=== PATIENT | male | born 1955 | race Caucasian/White ===

== ENCOUNTER 2023-10-27 11:16 | Outpatient (CLI) | payer MEDICARE, BC, SELFPAY | END 2023-10-27 11:17 | disposition home or self-care (01) | PROVIDERS: PCP Family Medicine; Visit Provider Family Medicine | DX: I10 Essential (primary) hypertension (principal); Z12.5 Encounter for screening for malignant neoplasm of prostate | CPT/HCPCS: 80048; 80061; 84460; G0103 ==

== ENCOUNTER 2023-11-11 10:56 | Outpatient (CLI) | payer MEDICARE, BC, SELFPAY | END 2023-11-11 10:57 | disposition home or self-care (01) | LOC: FBOREF 10:57 | PROVIDERS: PCP Family Medicine; Visit Provider Family Medicine | DX: R53.83 Other fatigue (principal); Z13.29 Encounter for screening for other suspected endocrine disorder | CPT/HCPCS: 84443 ==

== ENCOUNTER 2024-10-31 12:15 | Outpatient (CLI) | payer MEDICARE, BC, SELFPAY ==
[2024-10-31 15:38] LABS: Cholesterol* 226 mg/dL (90-199); HDL Cholesterol* 48 mg/dL (>=40); LDL Cholesterol Calculated 145 mg/dL (<100); Triglycerides* 165 mg/dL (40-149)
[2024-10-31 16:03] LABS: PSA Screen* 0.97 ng/mL (0.10-4.00)
== END 2024-10-31 12:16 | disposition home or self-care (01) ==
PROVIDERS: PCP Family Medicine; Visit Provider Family Medicine
DX: E03.9 Hypothyroidism, unspecified (principal); I10 Essential (primary) hypertension; Z12.5 Encounter for screening for malignant neoplasm of prostate
CPT/HCPCS: 80061; 84443; G0103

== ENCOUNTER 2025-01-03 19:49 | Outpatient (CLI) | payer MEDICARE, BC, SELFPAY ==
--- OUTSIDE RECORDS SUMMARY | 2025-01-04 00:58 | XMS_ITS | Clinical Summary ---
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 For routine questions regarding patient records, call [phone] during business hours, M-F 8:00 AM - 5:00 PM Central Time. Record requests for emergency care only can be directed to [phone] at any time.[facility] Allergies No known active allergies Medications CALCIUM CARB/VIT D3/MINERALS (CALCIUM-VITAMI N D ORAL) Take 1 tablet by mouth daily. 07/03/2016 Active B complex-vitamin (SUPER B-50) capsule Take 1 capsule by mouth. 01/25/2018 Active zinc chelated 50 mg tablet tablet Take 50 mg by mouth. 01/25/2018 Active vitamin E 400 unit capsule Take 400 Units by mouth. 01/25/2018 Active sour tavares extract 1,000 mg capsule Take 1 capsule by mouth. 01/25/2018 Active D3-E-Se-soy rqdev-gkpzwh-br copy messenger 1,200-15-35 twmp-sdgy-exj capsule Take 1 capsule by mouth. 01/25/2018 Active miscellaneous medical supply (Blood Pressure Cuff) [facility] [place]pertension . Needs BP monitor at home 1 each 03/14/2022 Active tamsulosin (FLOMAX) 0.4 mg 24 hr capsule TAKE 2 CAPSULES(0.8 MG) BY MOUTH DAILY 180 capsule 3 10/22/2022 Active irbesartan (AVAPRO) 150 mg tablet Take 1 tablet (150 mg total) by mouth daily. 90 tablet 3 05/05/2023 Active apixaban (ELIQUIS) 5 mg tablet Take 1 tablet by mouth 2 (two) times a day. 11/14/2023 Active metoprolol succinate (Toprol XL) 25 mg 24 hr tablet Take 1 tablet (25 mg total) by mouth daily. Do not crush or chew. 90 tablet 3 12/30/2023 Active omega-3 fatty acids-fish oil 360-1,200 mg capsule Take 1 capsule by mouth. Active magnesium oxide (Mag-Ox) 400 mg (241.3 mg magnesium) tablet Take 800 mg by mouth daily before morning meal. Active sertraline (Zoloft) 100 mg tablet Take 1.5 tablets (150 mg total) by mouth daily. 135 tablet 3 06/08/2024 Active SAW PALMETTO ORAL Take by mouth 2 (two) times a day. Active UNABLE TO FIND Take 1 capsule by mouth daily. Cayenne with Garlic Active levothyroxine 125 mcg tabletIndicatio ns:Hypothyroidi sm Take 1 tablet (125 mcg total) by mouth daily. 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 Hearing On The Contralateral Side 08/07/2017 Hypertension Essential Primary 06/19/2016 Overview (12/02/2016): Hypertension (HTN) Essential Benign Resolved Problems Problem Noted Date Diagnosed Date Resolved Date Alcohol Use Unspecified With Withdrawal Delirium 06/01/2024 06/08/2024 Rhabdomyolysis 05/31/2024 10/10/2024 Weakness General 05/31/2024 10/10/2024 Encounters Date Type Department Care Team Description 10/21/2024 9:52 AM CDT - 10/21/2024 11:59 PM CDT Emergency [facility] [address] [place] [phone] History Of Falling (Primary Dx) Discharge Disposition: Home or Self Care 10/21/2024 Clinical Communication Department of [facility], [facility], in [address] [phone] None Reported, Pcp Lip Laceration 10/11/2024 Results Follow-Up Department of Family Medicine, [facility], in [address] [phone] Desiree Briseno APRN, C.N.P. CBC with Differential, Blood, Comprehensive Metabolic Panel, Ferritin, Additional followed-up results: 9 10/10/2024 9:06 AM CDT - 10/10/2024 11:59 PM CDT Hospital Encounter Department of Laboratory Medicine in [address] [phone] Desiree Briseno APRN, C.N.P. History Of Falling; Weakness General Discharge Disposition: Home or Self Care 10/10/2024 9:06 AM CDT - 10/10/2024 11:59 PM CDT Hospital Encounter Department of Laboratory Medicine in [address] [phone] Desiree Briseno APRN, C.N.P. History Of Falling; Weakness General Discharge Disposition: Home or Self Care 10/10/2024 9:00 AM CDT Office Visit Department of Family Medicine, [facility], in [address] [phone] Desiree Briseno APRN, C.N.P. Weakness General (Primary Dx); Alcohol Moderate Or Severe Use Disorder (Dependence) Uncomplicated (HCC); Atrial Fibrillation Unspecified (HCC); History Of Falling; Change In Bowel Habit; Anxiety; Hypertension Essential Primary 10/10/2024 Results Follow-Up Department of Family Medicine, [facility], in [place], [place] [address] [place] [phone] Desiree Briseno APRN, C.N.P. ECG 12 Lead from Last 3 Months Immunizations Immunization Administration Dates Next Due Influenza high dose QV(65 years or older) (PF) 0 07/22/2021,05/01/2020 Influenza, Unspecified 05/13/2017 PPSV23 07/22/2021 Tdap 05/01/2020,04/08/2010 influenza vaccine quad (FLUZ ONE/FLUARIX) (6 months and older)(PF) 05/24/2018 Family History Medical History Relation Name Comments Hyperlipidemia Brother Heart failure Father Stroke Mother 1 Stroke Mother 2 Relation Name Status Comments Brother Alive Father Mother 1 Mother 2 Alive Social History Tobacco Use Types Packs/Day Years Used Date Smoking Tobacco: Former Cigarettes Passive Smoke Exposure: Never Smokeless Tobacco: Never Tobacco Cessation:Counseling Given: Not Answered Alcohol Use Standard Drinks/Week Comments Not Currently 14 (1 standard drink = 0.6 oz pu re alcohol) [facility] [employer] Answer Date Recorded In the past 12 months has e ME911, gas, oil, or water [employer] threatened to shut off services in your home? No 01/11/2024 Humiliation, Afraid, Rape, and Kick questionnair e Answer Date Recorded Within the last year, have y ou been afraid of your partner or ex-partner? No 03/21/2022 Within the last year, have y ou been humiliated or emotionally abused in other ways by your partner or ex-partner? No Within the last year, have y ou been kicked, hit, slapped, or otherwise physically hurt by your partner or ex-partner? No 03/21/2022 Within the last year, have y ou been raped or forced to have any kind of sexual activity by your partner or ex-partner? No 03/21/2022 Hunger Vital Sign Answer Date Recorded Within the past 12 months, y ou worried that your food would run out before you got the money to buy more. Never true 01/11/20 24 Within the past 12 months, t he food you bought just didn't last and you didn't have money to get more. Never true 01/11/2024 PRAPARE - Transportation Answer Date Re corded In the past 12 months, has l ack of transportation kept you from medical appointments or from getting medications? No 07/2023 In the past 12 months, has l ack of transportation kept you from meetings, work, or from getting things needed for daily living? No 01/11/2024 Housing Stability Answer Date Recorded What is your living situation today? [facility] place to live 01/11/2024 Education Answer Date Recorded What is the highest level of school you have completed or the highest degree you have received? 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 Gender Identity Male 12/31/2022 12:20 PM CDT Sexual Orientation Straight 06/17/2021 10 :27 AM MUD ANALYSIS OPERATOR Last Filed Vital Signs Vital Sign Reading Time Taken Comments Blood Pressure 138/84 10/10/2024 8:37 AM CDT Pulse 69 10/10/2024 8:37 AM CDT Temperature 36.4 C (97.5 F) 10/10/2024 8:26 AM CDT Respiratory Rate 13 02/03/2024 10:3 5 AM CDT Oxygen Saturation 95% 02/03/2024 11: 45 AM CDT Inhaled Oxygen Concentration - - Weight 94.3 kg (207 lb 14.3 oz) 10/10/2024 8:26 AM CDT Height 179 cm (5' 10.47) 10/10/2024 8:26 AM CDT Body Mass Index 29.43 10/10/2024 8:26 AM CDT Plan of Treatment Health Maintenance Due Date Last Done Comments CT Colonography 1955 Hepatitis C Screening 1955 Zoster Vaccines (1 of 2) 2004 Pneumococcal vaccine (50+ years) (2 of 2 - PCV) 07/22/2022 07/22/2021 COVID-19 Vaccine ( - season) 2024 Influenza Vaccine (#1) 2024 , 05/01/2020, 05/24/2018, Additional history exists Office Visit for Blood Pressure Check / Re-check 10/10/2025 10/10/2024 Thyroid Stimulating Hormone (TSH) test for thyroid function 10/10/2025 10/10/2024, 11/14/2023 Cologuard 11/04/2025 11/04/2022 Colonoscopy 01/29/2026 01/29/2023 Colorectal Cancer Surveillance 01/29/2026 Fasting Glucose for Diabetes Screening 10/22/2027 10/21/2024, 10/10/2024, 05/31/2024, Additional history exists DTaP,Tdap,and Td Vaccines (3 - Td or Tdap) 05/01/2030 05/01/2020, 04/08/2010 Abdominal Aortic Aneurysm (AAA) Screen Completed 07/01/2021 Colonoscopy After Positive Cologuard Discontinued 01/29/2023 Depression Screening (Annual PHQ-2) Completed 10/10/2024, 10/08/2024 Fall Risk Screen (Annual) Completed 10/10/2024 IPV Vaccines Aged Out No longer eligi ble based on patient's age to complete this topic Medical Devices Implanted Type 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 Body Location - Other. Not Applicable. Device Status Text - [id number]. Procedures Procedure Name Priority Date/Time Associated Diagnosis Comments CT CERVICAL SPINE WITHOUT IV CONTRAST RAD - Semiurgent (Fast; most ED patients; some inpatients) 10/21/2024 11:[address] HEAD WITHOUT IV CONTRAST RAD - Semiurgent (Fast; most ED patients; some inpatients) 10/21/2024 11:11 AM CDT DX CHEST AP OR PA AND LATERAL 2 VIEWS RAD - Semiurgent (Fast; most ED patients; some inpatients) 10/21/2024 11:08 AM CDT THYROPEROXIDASE (TPO) ABS, S Routine 10/10/2024 9:25 AM CDT HC T4 FREE Routine 10/10/2024 9:25 AM CDT NT-PRO B-TYPE NATRIURETIC PEPTIDE (BNP), S Routine 10/10/2024 9:25 AM CDT History Of Falling Weakness General COPPER, S Routine 10/10/2024 9:25 AM CDT History Of Falling Weakness General ZINC, S Routine 10/10/2024 9:25 AM CDT History Of Falling Weakness General MAGNESIUM, S Routine 10/10/2024 9:25 AM CDT History Of Falling Weakness General FOLATE, S Routine 10/10/2024 9:25 AM CDT History Of Falling Weakness General VITAMIN B12 ASSAY, S Routine 10/10/2024 9:25 AM CDT History Of Falling Weakness General VITAMIN D, IMMUNOASSAY, TOTAL, S Routine 10/10/2024 9:25 AM CDT History Of Falling Weakness General THYROID FUNCTION CASCADE, S Routine 10/10/2024 9:25 AM CDT History Of Falling Weakness General IRON AND TOT IRON-BINDING CAPACITY, S/P Routine 10/10/2024 9:25 AM CDT History Of Falling Weakness General FERRITIN, S Routine 10/10/2024 9:25 AM CDT History Of Falling Weakness General COMPREHENSIVE METABOLIC PANEL, S/P Routine 10/10/2024 9:25 AM CDT History Of Falling Weakness General CBC WITH DIFFERENTIAL, B Routine 10/10/2024 9:25 AM CDT History Of Falling Weakness General ECG Routine 10/10/2024 9:03 AM CDT History Of Falling Weakness General COLOGUARD Routine 11/04/2022 1:05 PM CDT Screening Cancer Colon US AORTA AAA SCREENING RAD - Routine (most inpatients and all outpatients) 07/01/2021 12:45 PM MUD ANALYSIS OPERATOR Screening Abdominal Aortic Aneurysm from Last 3 Months or Most Recently Relevant to Health Maintenance Results * CT Cervical Spine without IV Contrast (10/21/2024 11:13 AM CDT) Anatomical Region Laterality Modality Cervical Spine, Neuroradiolo gy RST LOS, Neuroradiology ARZ LOS, Neuroradiology FLA LOS N/A Computed Tomography 10/21/2024 11:1 2 AM CDT Impressions 10/21/2024 11:25 AM CDT 1. No acute findings in the cervical spine. Narrative 10/21/2024 11:25 AM CDT EXAM: CT CERVICAL SPINE WITHOUT IV CONTRAST COMPARISON: 05/31/2024 FINDINGS: Preserved alignment at the craniocervical junction. There is stepwise grade 1 anterolisthesis of C4-C6 on a degenerative basis. There is no evidence of traumatic malalignment. No evidence of a jumped or perched facet. There is multilevel moderate to severe cervical spondylosis manifested by degenerative disc disease, uncovertebral arthropathy, and facet arthropathy. Moderate to severe foraminal narrowing right C4-5, left C5-6, left C6-7 and C7-T1. No high-grade spinal canal stenosis. Carotid bulb calcified atheromatous plaque. Procedure Note Elisabeth Wood M.D. - 10/21/2024 EXAM: CT CERVICAL SPINE WITHOUT IV CONTRAST COMPARISON: 05/31/2024 FINDINGS: Preserved alignment at the craniocervical junction. There is stepwisegrade 1 anterolisthesis of C4-C6 on a degenerative basis. There is noevidence of traumatic malalignment. No evidence of a jumped or perchedfacet. There is multilevel moderate to severe cervical spondylosis manifested bydegenerative disc disease, uncovertebral arthropathy, and facetarthropathy. Moderate to severe foraminal narrowing right C4-5, left C5-6,left C6-7 and C7-T1. No high-grade spinal canal stenosis. Carotid bulb calcified atheromatous plaque. IMPRESSION: 1. No acute findings in the cervical spine. us Loreto Salazar M.D. [facility] PROCEDURES Final Result * CT Head without IV Contrast (10/21/2024 11:11 AM CDT) Anatomical Region Laterality Modality Head, Neuroradiology RST LOS , Neuroradiology ARZ LOS, Neuroradiology FLA LOS N/A Computed Tomography 10/21/2024 11:0 8 AM CDT Impressions 10/21/2024 11:15 AM CDT 1. No acute intracranial abnormality. Stable exam findings. Narrative 10/21/2024 11:15 AM CDT EXAM: CT HEAD WITHOUT IV CONTRAST COMPARISON: CT of the head 05/31/2024. FINDINGS: Cortical and cerebellar volume loss redemonstrated with stable ventricular size and configuration. Patent basilar cisterns. Subcortical and periventricular white matter low attenuation unchanged. No intra-axial hemorrhage. No mass effect or midline shift. No abnormal extra-axial fluid collection. Calvarial structures are intact. Lobular paranasal mucosal thickening across the maxillary sinuses, left greater than right. Mastoid air cells remain clear. Procedure Note Glen Molina M.D. - 10/21/2024 EXAM: CT HEAD WITHOUT IV CONTRAST COMPARISON: CT of the head 05/31/2024. FINDINGS: Cortical and cerebellar volume loss redemonstrated with stableventricular size and configuration. Patent basilar cisterns. Subcorticaland periventricular white matter low attenuation unchanged. No intra-axialhemorrhage. No mass effect or midline shift. No abnormal extra-axial fluid collection. Calvarial structures are intact. Lobular paranasal mucosal thickeningacross the maxillary sinuses, left greater than right. Mastoid air cellsremain clear. IMPRESSION: 1. No acute intracranial abnormality. Stable exam findings. us Loreto Salazar M.D. [facility] CT PROCEDURES Final Result * DX Chest AP or PA and Lateral 2 Views (10/21/2024 11:08 AM CDT) Anatomical Region Laterality Modality Chest, Thoracic RST LOS, Tho racic ARZ LOS, Thoracic FLA LOS N/A Digital Radiography Impressions 10/21/2024 11:13 AM CDT Images are interpreted with comparison several prior studies, most recently radiographs 05/30/2024. Cardiac size and mediastinal contours are stable, to include a tortuous thoracic aorta. Streaky linear areas of opacity at each lung base favored to reflect subsegmental atelectasis. No consolidation. No pneumothorax or pleural effusion. Degenerative changes throughout the thoracic spine with mild vertebral body height loss, unchanged from prior studies. Narrative 10/21/2024 11:13 AM CDT EXAM: DX CHEST AP OR PA AND LATERAL 2 VIEWS Procedure Note Glen Molina M.D. - 10/21/2024 EXAM: DX CHEST AP OR PA AND LATERAL 2 VIEWS IMPRESSION: Images are interpreted with comparison several prior studies, mostrecently radiographs 05/30/2024. Cardiac size and mediastinal contours arestable, to include a tortuous thoracic aorta. Streaky linear areas ofopacity at each lung base favored to reflect subsegmental atelectasis. No consolidation. Nopneumothorax or pleural effusion. Degenerative changes throughout thethoracic spine with mild vertebral body height loss, unchanged from priorstudies. Loreto Salazar M.D. IMG DIAGNOSTIC IMAGING PROCEDU RES Final Result * (ABNORMAL) T4 (Thyroxine), Free, Serum (10/10/2024 9:25 AM CDT) T4 (Thyroxine), Free, S 0.7(L) 0.9 - 1.7 ng/dL 10/11/2024 4:13 AM CDT [facility] Blood 10/10/2024 9:25 AM CDT 10/10/2024 9:27 AM CDT Desiree Briseno APRN, C.N.P. LAB BLOOD ADD-ON Fi nal Result [facility] [address] [place] [address], [facility] [address] [place] [address] * Vitamin D, Immunoassay, Total, Serum (10/10/2024 9:25 AM CDT) Pathologist [facility] Vitamin D, Immunoassay, Total, S 45 20 - 80 ng/mL 10/10/2024 2:48 PM CDT [facility] Comment: Optimum levels within the healthy population are 20-50, patients with bone disease may benefit from high levels within this range Blood (Blood, Venous) 10/10/2024 9:25 AM CDT 10/10/2024 2:01 PM CDT Desiree Briseno APRN, C.N.P. LAB BLOOD ADD-ON Fi nal Result Performing Organization Address City/[facility]/ZIP Co de Phone Number [facility] [address] [place] [id number], [facility] [place] [address] * (ABNORMAL) Thyroid Function [place] (10/10/2024 9:25 AM CDT) [facility] TSH, Sensitive 4.9(H) 0.3 - 4.2 mIU/L 10/10/2024 11:08 PM CDT [facility] Blood (Blood, Venous) 10/10/2024 9:25 AM CDT 10/10/2024 9:27 AM CDT us Desiree Briseno APRN, C.N.P. LAB BLOOD ADD-ON Fi nal Result [facility] [address] [place] [address], [place] [facility] [address] [place] [address] * NT-Pro B-Type Natriuretic Peptide (BNP) (10/10/2024 9:25 AM CDT) NT-Pro BNP 213 <=540 pg/mL 10/10/2024 10:26 PM CDT [facility] Comment: NT-proBNP values less than 300 pg/mL have a 99% negative predictive value for excluding acute congestive heart failure. A cutoff of 1200 pg/mL for patients with an eGFR<60 yields a diagnostic sensitivity and specificity of 89% and 72% for acute congestive heart failure. A diagnostic NT-proBNP cutoff of 900 pg/mL has been suggested in adults 50-75 years of age in the absence of renal failure. Blood (Blood, Venous) 10/10/2024 9:25 AM CDT 10/10/2024 9:27 AM CDT Desiree Briseno APRN, C.N.P. LAB BLOOD ADD-ON Fi nal Result [facility] [address] [place] [address], [facility] [address] [place] [address] * Thyroperoxidase (TPO) Antibodies (10/10/2024 9:25 AM CDT) Thyroperoxidase Ab, S 11.7 <34.0 IU/mL 10/11/2024 2:51 AM CDT [facility] Blood 10/10/2024 9:25 AM CDT 10/10/2024 9:27 AM CDT Desiree Briseno APRN, C.N.P. LAB BLOOD ADD-ON Fi nal Result [facility] [place] [address], [facility] in [place] [address] [place] [id number] * Iron and Total Iron-Binding Capacity (10/10/2024 9:25 AM CDT) Iron 85 50 - 150 mcg/dL 10/10/2024 3:27 PM CDT [facility] Total Iron Binding Capacity 266 250 - 400 mcg/dL 10/10/2024 3:27 PM CDT [facility] Percent Saturation 32 14 - 50 % 10/10/2024 3:27 PM CDT [facility] Blood (Blood, Venous) 10/10/2024 9:25 AM CDT 10/10/2024 2:50 PM CDT Desiree Briseno APRN C.N.P. LAB BLOOD ADD-ON Fi nal Result Performing Organization Address [facility] de Phone Number [facility] [address] [place] [address], [place] [facility] [address] [place] [address] * Copper (10/10/2024 9:25 AM CDT) Copper, S 115 73 - 129 mcg/dL 10/11/2024 1:[address] [facility] Comment: ----ADDITIONAL INFORMATION---- This test was developed and its performance characteristics determined by [facility] in a manner consistent with CLIA requirements. This test has not been cleared or approved by the U.S. Food and Drug Administration. Blood (Blood, Venous) 10/10/2024 9:25 AM CDT 10/11/2024 7:23 AM CDT Desiree Briseno APRN C.N.P. LAB BLOOD NON ADD-O N Final Result Performing Organization Address [facility] Co de Phone Number [facility] [address] [place] [address] [facility] [address] [place] [address] * Zinc (10/10/2024 9:25 AM CDT) Zinc, S 81 60 - 106 mcg/dL 10/11/2024 1:[address] [facility] Comment: ----ADDITIONAL INFORMATION---- This test was developed and its performance characteristics determined by [facility] in a manner consistent with CLIA requirements. This test has not been cleared or approved by the U.S. Food and Drug Administration. Blood (Blood, Venous) 10/10/2024 9:25 AM CDT 10/11/2024 7:23 AM CDT us Ruddy Chacko APRNNKrystynaPKrystyna LAB BLOOD NON ADD-O N Final Result [facility] [address] [place] [address] [facility] [address] [place] [address] * (ABNORMAL) CBC with Differential, Blood (10/10/2024 9:25 AM CDT) Hemoglobin 13.8 13.2 - 16.6 g/dL 10/10/2024 9:32 AM CDT [facility] Hematocrit 40.0 38.3 - 48.6 % 10/10/2024 9:32 AM CDT [facility] Erythrocytes 4.47 4.35 - 5.65 x10(12)/L 10/10/2024 9:32 AM CDT [facility] MCV 89.5 78.2 - 97.9 fL 10/10/2024 9:32 AM CDT [facility] RBC Distrib Width 13.6 11.8 - 14.5 % 10/10/2024 9:32 AM CDT [facility] Platelet Count 224 135 - 317 x10(9)/L 10/10/2024 9:32 AM CDT [facility] Leukocytes 4.2 3.4 - 9.6 x10(9)/L 10/10/2024 9:32 AM CDT [facility] Neutrophils 2.69 1.56 - 6.45 x10(9)/L 10/10/2024 9:32 AM CDT [facility] Lymphocytes 0.69(L) 0.95 - 3.07 x10(9)/L 10/10/2024 9:32 AM CDT [facility] Monocytes 0.56 0.26 - 0.81 x10(9)/L 10/10/2024 9:32 AM CDT [facility] Eosinophils 0.20 0.03 - 0.48 x10(9)/L 10/10/2024 9:32 AM CDT [facility] Basophils 0.06 0.01 - 0.08 x10(9)/L 10/10/2024 9:32 AM CDT [facility] Blood (Blood, Venous) 10/10/2024 9:25 AM CDT 10/10/2024 9:27 AM CDT Desiree Briseno APRN, C.N.P. LAB BLOOD ADD-ON Fi nal Result Performing Organization Address [facility] Co de Phone Number [facility] [address] [place] [address], [facility] in [place] [address] [place] [phone] * Magnesium (10/10/2024 9:25 AM CDT) Magnesium, P 1.9 1.7 - 2.3 mg/dL 10/10/2024 10:02 AM CDT [facility] Blood (Blood, Venous) 10/10/2024 9:25 AM CDT 10/10/2024 9:27 AM CDT Desiree Briseno APRN, C.N.P. LAB BLOOD ADD-ON Fi nal Result Performing Organization Address [facility] Co de Phone Number [facility] [address], [place] [address], [facility] in [place] [address] [place] [address] * Folate (10/10/2024 9:25 AM CDT) Folate, S 9.4 >=4.0 mcg/L 10/10/2024 3:32 PM CDT [facility] Comment: Biotin has been identified by the hot head machine operator as a potential interfering substance. Higher concentrations of biotin may be found in multivitamins, hair/nail supplements, and workout supplements. If the result does not match clinical observations, repeat testing after patient refrains from the use of supplements for at least 12 hours. Blood (Blood, Venous) 10/10/2024 9:25 AM CDT 10/10/2024 2:50 PM CDT Desiree Briseno APRN, C.N.P. LAB BLOOD ADD-ON Fi nal Result Performing Organization Address [facility] Co de Phone Number [facility] [address] [place] [address], [facility] [address] [place] [address] * Ferritin (10/10/2024 9:25 AM CDT) Ferritin, S 210 31 - 409 mcg/L 10/10/2024 11:07 PM CDT AUST Comment: Biotin has been identified by the hot head machine operator as a potential interfering substance. Higher concentrations of biotin may be found in multivitamins, hair/nail supplements, and workout supplements. If the result does not match clinical observations, repeat testing after patient refrains from the use of supplements for at least 12 hours. Blood (Blood, Venous) 10/10/2024 9:25 AM CDT 10/10/2024 9:27 AM CDT Desiree Briseno APRN, C.N.P. LAB BLOOD ADD-ON Fi nal Result Performing Organization Address [facility] Co de Phone Number [facility] [address] [place] [address], [place] AUST [facility] [address] [place] [address] * Vitamin B12 Assay (10/10/2024 9:25 AM CDT) Vitamin B12 Assay, S 694 232 - 1245 ng/L 10/10/2024 3:32 PM CDT AUST Comment: Biotin has been identified by the hot head machine operator as a potential interfering substance. Higher concentrations of biotin may be found in multivitamins, hair/nail supplements, and workout supplements. If the result does not match clinical observations, repeat testing after patient refrains from the use of supplements for at least 12 hours. Blood (Blood, Venous) 10/10/2024 9:25 AM CDT 10/10/2024 2:50 PM CDT us Ruddy Chacko APRNNZaid LAB BLOOD ADD-ON Fi nal Result [facility] [address] [place] [address], [facility] AUST [facility] [address] [place] [address] * (ABNORMAL) Comprehensive Metabolic Panel (10/10/2024 9:25 AM CDT) Potassium, P 4.4 3.6 - 5.2 mmol/L 10/10/2024 10:02 AM CDT OWAT Sodium, P 136 135 - 145 mmol/L 10/10/2024 10:02 AM CDT OWAT Chloride, P 98 98 - 107 mmol/L 10/10/2024 10:02 AM CDT OWAT Bicarbonate, P 28 22 - 29 mmol/L 10/10/2024 10:02 AM CDT OWAT Anion Gap, P 10 7 - 15 10/10/2024 10:02 AM CDT OWAT BUN (Blood Urea Nitrogen), P 10 8 - 24 mg/dL 10/10/2024 10:02 AM CDT OWAT Creatinine 0.82 0.74 - 1.35 mg/dL 10/10/2024 10:02 AM CDT OWAT Estimated GFR (eGFR) >90 >=60 mL/min/BS A 10/10/2024 10:02 AM CDT OWAT Comment: Estimated GFR calculated using the 2020 CKD_EPI creatinine equation. Calcium, Total, P 9.9 8.8 - 10.2 mg/dL 10/10/2024 10:02 AM CDT OWAT Glucose, P 108 70 - 140 mg/dL 10/10/2024 10:02 AM CDT OWAT Protein, Total, P 8.1(H) 6.3 - 7.9 g/dL 10/10/2024 10:02 AM CDT OWAT Albumin, P 4.7 3.5 - 5.0 g/dL 10/10/2024 10:02 AM CDT OWAT Aspartate Aminotransferase (AST), P 21 8 - 48 U/L 10/10/2024 10:02 AM CDT OWAT Alkaline Phosphatase, P 65 40 - 129 U/L 10/10/2024 10:02 AM CDT OWAT Alanine Aminotransferase (ALT), P 16 7 - 55 U/L 10/10/2024 10:02 AM CDT OWAT Bilirubin, Total, P 0.4 0.0 - 1.2 mg/dL 10/10/2024 10:02 AM CDT OWAT Blood (Blood, Venous) 10/10/2024 9:25 AM CDT 10/10/2024 9:27 AM CDT us Desiree Briseno APRN, C.N.P. LAB BLOOD ADD-ON Fi nal Result Performing Organization Address [facility] Co de Phone Number [facility] [address] [place] [address], [place] OWAT [facility] [place] [address] [place] [address] * ECG 12 Lead (10/10/2024 9:03 AM CDT) Ventricular Rate ECG/Min 59 BPM MUSE ID Interval 188 ms MUSE QRSD Interval 94 ms MUSE QT Interval 430 ms MUSE QTC Interval 425 ms MUSE P [place] 61 degrees MUSE R [place] 35 degrees MUSE T Wave [place] 69 degrees MUSE 10/10/2024 9:03 AM CDT 10/10/2024 9:29 AM CDT Impressions MUSE - 10/10/2024 9:29 AM CDT Sinus bradycardia Nonspecific ST abnormality When compared with ECG of 07-Mar-2024 08:50, No significant change was found Reviewed by YUNIER Sim Narrative Procedure Note Dion Wallis Jr., M.D. - 10/10/2024 IMPRESSION: Sinus bradycardia Nonspecific ST abnormality When compared with ECG of 07-Mar-2024 08:50, No significant change was found Reviewed by YUNIER Sim us Desiree Briseno APRN, C.N.P. ECG ORDERABLES Fin al Result Performing Organization Address [facility] Co de Phone Number MUSE NA * (ABNORMAL) Cologuard-Sent Out Lab (11/04/2022 1:05 PM CDT) Result Positive( A) Negative 11/21/2022 12:23 AM CDT EXLI Comment: POSITIVE TEST RESULT. A positive Cologuard result should be followed with a colonoscopy or visual examination of the colon. The normal value (reference range) for this assay is negative. TEST DESCRIPTION: Composite algorithmic analysis of stool DNA-biomarkers with hemoglobin immunoassay. Quantitative values of individual biomarkers are not reportable and are not associated with individual biomarker result reference ranges. Cologuard is intended for colorectal cancer screening of adults of either sex, 45 years or older, who are at average-risk for colorectal cancer (CRC). Cologuard has been approved for use by the [place]. FDA. The performance of Cologuard was established in a cross sectional study of average-risk adults aged 50-84. Cologuard performance in patients ages 45 to 49 years was estimated by sub-group analysis of near-age groups. Colonoscopies performed for a positive result may find as the most clinically significant lesion: colorectal cancer [4.0%], advanced adenoma (including sessile serrated polyps greater than or equal to 1cm diameter) [20%] or non- advanced adenoma [31%]; or no colorectal neoplasia [45%]. These estimates are derived from a prospective cross-sectional screening study of 10,000 individuals at average risk for colorectal cancer who were screened with both Cologuard and colonoscopy. (Syeda Norwood et al, N Engl J Med 2014;370(14):4496-3705.) Cologuard may produce a false negative or false positive result (no colorectal cancer or precancerous polyp present at colonoscopy follow up). A negative Cologuard test result does not guarantee the absence of CRC or advanced adenoma (pre-cancer). The current Cologuard screening interval is every 3 years. ([place] [employer] and [place]. Multi-Society Task Force). Cologuard performance data in a 10,000 patient pivotal study using colonoscopy as the reference method can be accessed at the following location: www.[employer]/results. Additional description of the Cologuard test process, warnings and precautions can be found at www.cologuard.com. Stool (Stool) 11/04/2022 1:0 5 PM CDT 11/05/2022 1:18 PM CDT us Amber Pang APRN., M.S. LAB BODY FLUIDS AND STOOLS ORDERABLES Final Result [id number] [place] [id number] [employer] [address] [place] [address], [address] [place] [address] * US Aorta AAA Screening (07/01/2021 12:45 PM MUD ANALYSIS OPERATOR) Anatomical Region Laterality Modality Abdomen, Pelvis, Ultrasound RST LOS, Ultrasound ARZ LOS, Ultrasound FLA LOS N/A Ultrasound 07/01/2021 1:14 PM MUD ANALYSIS OPERATOR Impressions 07/01/2021 1:15 PM MUD ANALYSIS OPERATOR The abdominal aorta and common iliac arteries are normal in size and negative for aneurysm. Narrative 07/01/2021 1:15 PM MUD ANALYSIS OPERATOR EXAM: US AORTA AAA SCREENING Exam performed with color and spectral Doppler analysis. COMPARISON: Renal artery ultrasound 03/30/2018 FINDINGS: Aorta: AP - 2.0 cm Aorta: Trans - 2.0 cm Right MARIO: AP - 1.4 cm Right MARIO Trans - 1.1 cm Left MARIO: AP - 1.2 cm Left MARIO Trans - 1.2 cm Procedure Note Lori Angel M.D. - 07/01/2021 EXAM: US AORTA AAA SCREENING Exam performed with color and spectral Doppler analysis. COMPARISON: Renal artery ultrasound 03/30/2018 FINDINGS: Aorta: AP - 2.0 cm Aorta: Trans - 2.0 cm Right MARIO: AP - 1.4 cm Right MARIO Trans - 1.1 cm Left MARIO: AP - 1.2 cm Left MARIO Trans - 1.2 cm IMPRESSION: The abdominal aorta and common iliac arteries are normal in size and negative for aneurysm. us Johnathan Araiza P.A.-C., M.S. IMG US PROCEDURES Fi nal Result from Last 3 Months or Most Recently Relevant to Health Maintenance Insurance MEDICARE [facility] Advance Directives For more information, please contact: [phone] Documents on File Type Date Recorded Patient [employer] Expl anation Advance Directives 12/16/2010 12:00 AM Katalina levin document. See document viewer. 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
--- OUTSIDE RECORDS SUMMARY | 2025-01-04 00:58 | XMS_ITS | Clinical Summary ---
Author Organization [employer] [facility] Address [address] [place] [address] Care Team Providers Care Human Resources Benefits Assistant Name Role Phone Iglesia Garber MD Unavailable Glen Troy MD Primary Care Provider + Allergies No known active allergies Medications tamsulosin (FLOMAX) 0.4 mg capsule 0.4 mg once daily after a meal. 10/22/2022 Active irbesartan (AVAPRO) 150 mg tablet Take 150 mg by mouth once daily. Active metoprolol succinate (Toprol XL) 25 mg Sustained-Relea se tablet Take 25 mg by mouth once daily. Active apixaban (Eliquis) 5 mg tablet Take 5 mg by mouth two times daily. Active RED BEET ROOT-SOUR HARRIS EXT ORAL Take 1 Capsule by mouth once daily. Active cayenne/garlic (CAYENNE W/GARLIC ORAL) Take 1 Capsule by mouth once daily. Active MAGNESIUM OXIDE ORAL Take 500 mg by mouth once daily. Active fish oil-omega-3 fatty acids (Fish OiL) 1,200-360 mg cap Take 1 Capsule by mouth once daily. One capsule is 1200 mg-360 mg Active WalkerIndicatio ns:Traumatic rhabdomyolysis, initial encounter Walker with front wheels for home use. 1 Each 06/03/2024 Active busPIRone (BUSPAR) 5 mg tabletIndicatio ns:Anxiety Take 1 Tablet (5 mg) by mouth two times daily. 60 Tablet 06/04/2024 Active QUEtiapine (SEROQUEL) 50 mg tabletIndicatio ns:Anxiety Take 1 Tablet (50 mg) by mouth at bedtime. 30 Tablet 06/04/2024 Active sertraline (ZOLOFT) 50 mg tabletIndicatio ns:Anxiety Take 3 Tablets (150 mg) by mouth once daily. 90 Tablet 06/05/2024 Active zinc glycinate 30 mg cap Take 1 Tablet by mouth once daily. Active Active Problems Problem Noted Date Diagnosed Date Alcohol withdrawal syndrome, with delirium 06/01 Non-traumatic rhabdomyolysis 05/31/2024 Weakness 05/31/2024 Alcohol dependence 05/31/2024 Atrial fibrillation 11/16/2023 Anxiety 07/26/2021 Alcohol dependence 06/03/2021 Carpal tunnel syndrome of left wrist 06/12/2020 Sensorineural hearing loss (SNHL) 08/07/2017 Primary hypertension 06/19/2016 Overview (11/14/2023): Hypertension (HTN) Essential Benign Encounters Date Type Department Care Team Description 10/31/2024 Orders Only [facility] [address] [place] [address] Glen Troy MD 1 scan: (1-Ord) RANDIO REPORT 10/21/2024 9:53 AM CDT - 10/21/2024 1:47 PM CDT Emergency [facility] [address] [place] [address] Loreto Salazar MD Fall from standing, initial encounter (Primary Dx); Facial laceration, initial encounter; Mild peripheral edema; Elevated brain natriuretic peptide (BNP) level Discharge Disposition: Home Self Care 10/21/2024 Travel from Last 3 Months Social History Tobacco Use Types Packs/Day Years Used Date Smoking Tobacco: Former Cigarettes 0.5 20 Passive Smoke Exposure: Never Smokeless Tobacco: Never Tobacco Cessation:Counseling Given: Not Answered Comments:QUIT 20+ YRS AGO Alcohol Use Standard Drinks/Week Comments Yes 0 (1 standard drink = 0.6 oz pur e alcohol) 3-4 SOUTH A NIGHT Social Connections Answer Date Recorded Do you often feel lonely or isolated from those around you? 0 05/31/2024 Financial Resource Strain Answer Date R ecorded Difficulty of Paying Living Expenses 3 05/31/2024 Difficulty of Paying Living Expenses Not on file 05/31/2024 Food Insecurity Answer Date Recorded Do you worry your food will run out before you are able to buy more? 1 05/31/2024 Transportation Needs Answer Date Record ed Does lack of transportation keep you from medica l appointments? 1 05/31/2024 Does lack of transportation keep you from work, meetings or getting things that you need? 1 05/31/2024 Housing Stability Answer Date Recorded What is your housing situation today? 1 05/31/2024 Interpersonal Safety Answer Date Record ed Are you being hit, kicked, p ushed or yelled at (see row info)? No 10/21/2024 Interpersonal Safety Abuse 12 - 18 Not on file 10/21/2024 Interpersonal Safety Ambulatory Vulnerability No t on file 10/21/2024 Utilities Answer Date Recorded Do you have trouble paying f or utilities (for example, heat, electricity, water, phone)? 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 Gender Identity Not on file Sexual Orientation Not on file Obstetrics History Last Filed Vital Signs Vital Sign Reading Time Taken Comments Blood Pressure 178/109 10/21/2024 12:48 PM CDT Pulse 64 10/21/2024 12:48 PM CDT Temperature 36.7 C (98.1 F) 10/21/2024 10:03 AM CDT Respiratory Rate 18 10/21/2024 10:03 AM CDT Oxygen Saturation 94% 10/21/2024 12:48 PM CDT Inhaled Oxygen Concentration - - Weight 97.5 kg (215 lb) 10/21/2024 10:03 AM CDT Height 175.3 cm (5' 9) 10/21/2024 10:03 AM CDT Body Mass Index 31.75 10/21/2024 10:03 AM CDT Plan of Treatment Health Maintenance Due Date Last Done Comments Tdap 1965 Depression screening for age 12+ 1966 BMI (ht and wt on same day) for age 18+ 1972 Hepatitis C screening for ag e 18-79 1972 Pneumococcal series for age 50+ (1 of 2 - PCV) 1973 Tetanus booster 1974 Lipids for age 45-75 09/25/1999 Zoster (shingles) series for age 50+ (1 of 2) 2004 RSV vaccine for adults or (1 - Risk 60-74 years 1-dose series) 2014 COVID-19 vaccine series ( - season) 2024 Influenza Vaccine (Season Ended) 2025 Colonoscopy through age 75 01/29/2033 01/29/2023 Hepatitis B series for 19+ Aged Out N o longer eligible based on patient's age to complete this topic Procedures Procedure Name Priority Date/Time Associated Diagnosis Comments EXTENDED HOLTER Routine 11/21/2024 Chronic atrial fibrillation (HC) TROPONIN T (HS) ONE TIME Timed 10/21/2024 12:33 PM CDT BEDSIDE US STUDY ARCHIVE Routine 10/21/2024 12:[address] SPINE CERVICAL WO STAT 10/21/2024 11:[address] HEAD BRAIN WO STAT 10/21/2024 11:0 9 AM CDT XR CHEST 2 VIEWS PA AND LATERAL STAT 10/21/2024 11:09 AM CDT COVID-19 MOLECULAR Today 10/21/2024 10 :52 AM CDT UA W/ SEDIMENT EXAM REFLEXED PER CRITERIA STAT 10/21/2024 10:52 AM CDT CBC WITH AUTO DIFFERENTIAL STAT 10/21/2024 10:30 AM CDT PRO-BNP STAT 10/21/2024 10:30 AM CDT TROPONIN T (HS) ACUTE W/2HR REFLEX STAT 10/21/2024 10:30 AM CDT PROTIME-INR STAT 10/21/2024 10:30 AM CDT COMP METABOLIC PANEL STAT 10/21/2024 10:30 AM CDT CBC WITH AUTO DIFFERENTIAL STAT 10/21/2024 10:30 AM CDT EKG 12 LEAD STAT 10/21/2024 10:19 AM CDT COLONOSCOPY 01/29/2023 10:21 AM CDT from Last 3 Months or Most Recently Relevant to Health Maintenance Results * EXTENDED HOLTER (11/21/2024) Glen Troy MD CARDIAC SERVICES ORD Fin al Result * TROPONIN T (HS) ONE TIME (10/21/2024 12:33 PM CDT) TROPONIN T HS 8 6-15 ng/L ng/L 10/21/2024 1:06 PM CDT [facility] Blood BLOOD SPECIMEN / Unknown Venipuncture / Unknown 10/21/2024 12:33 PM CDT 10/21/2024 12:34 PM CDT Narrative [facility] - 10/21/2024 1:06 PM CDT hs-cTnT (Elecsys Troponin T Gen 5) concentration (s) above the sex-specific 99th percentile (16 ng/L or greater for males or 11 ng/L or greater for females) are indicative of myocardial injury. If initial hs-cTnT <=100 ng/L at presentation, a 0h/2h ABSOLUTE (ng/L) delta change (rising or falling) of >=10 ng/L suggests a significant change, whereas a 0h/2h delta change <=3 ng/L suggests no significant change. If initial hs-cTnT >100 ng/L at presentation, a 0h/2h/ RELATIVE (percent, %) delta change of 20% is suggested to distinguish patients with acute vs. chronic myocardial injury. There are multiple etiologies that can cause hs-cTnT increases above the 99th percentile (myocardial injury) other than acute myocardial infarction. Clinical context and careful clinical evaluation are critical for diagnosis and risk-stratification. The diagnosis of acute myocardial infarction requires a rising and/or falling pattern in hs-cTnT concentrations with at least one value above the sex-specific 99th percentile PLUS at least one of the following clinical criteria: ischemic symptoms, new or presumed new significant ST-T wave changes or new LBBB, development of pathological Q waves, imaging evidence of new loss of viable myocardium or new regional wall motion abnormality, or identification of intracoronary atherothrombosis or an acute angiographic culprit on coronary angiography. In appropriate low-risk patients with a non-ischemic electrocardiogram without active chest pain with a symptom onset >3-hours without recurrence, a single initial hs-cTnT<6 ng/L identifies patient with a very low risk in emergency department patient population. us Loreto Salazar MD CHEMISTRY Final Res ult [facility] [address] [address] * CT SPINE CERVICAL WO (10/21/2024 11:10 AM CDT) Anatomical Region Laterality Modality CERVICAL SPINE, NECK, Spine Comp uted Tomography us Loreto Salazar MD CT Final Res ult * CT HEAD BRAIN WO (10/21/2024 11:09 AM CDT) Anatomical Region Laterality Modality HEAD, BRAIN Computed Tomogra phy us Loreto Salazar MD CT Final Res ult * XR CHEST 2 VIEWS PA AND LATERAL (10/21/2024 11:09 AM CDT) Anatomical Region Laterality Modality CHEST, THORAX, Lung, HEART Digit al Radiography us Loreto Salazar MD GENERAL IMAGING Final Res ult * COVID-19 MOLECULAR (10/21/2024 10:52 AM CDT) COVID 19 [facility] MOLECULAR Not detected Not detected 10/21/2024 11:23 AM CDT [facility] TESTING LABORATORY [facility] 10/21/2024 11:23 AM [facility] Comment:Specimen submitted t o [facility] for testing. Other SPECIMEN FROM NASOPHARYNGEAL STRUCTURE / Unknown Non-Blood / Unknown 10/21/2024 10:52 AM CDT 10/21/2024 11:01 AM CDT us Loreto Salazar MD MICROBIOLOGY Final Res ult [facility] [address] [address] * UA W/ SEDIMENT EXAM REFLEXED PER CRITERIA (10/21/2024 10:52 AM CDT) COLOR Yellow Yellow Color 10/21/2024 11:07 AM [facility] CLARITY Clear Clear Clarity 10/21/2024 11:07 AM [facility] SPECIFIC GRAVITY,URINE 1.010 1.010, 1.015, 1.020, 1.025 10/21/2024 11:07 AM [facility] PH,URINE 6.5 6.0, 7.0, 8.0, 5.5, 6.5, 7.5, 8.5 10/21/2024 11:07 AM [facility] UROBILINOGEN,Q UALITATIVE Normal Normal EU/dl 10/21/2024 11:07 AM [facility] PROTEIN, URINE Negative Negative mg/dL 10/21/2024 11:07 AM [facility] GLUCOSE, URINE Negative Negative mg/dL 10/21/2024 11:07 AM [facility] KETONES,URINE Negative Negative mg/dL 10/21/2024 11:07 AM [facility] BILIRUBIN,URIN E Negative Negative 10/21/2024 11:07 AM [facility] OCCULT BLOOD,URINE Negative Negative 10/21/2024 11:07 AM [facility] NITRITE Negative Negative 10/21/2024 11:07 AM [facility] LEUKOCYTE ESTERASE Negative Negative 10/21/2024 11:07 AM [facility] Urine URINE SPECIMEN / Unknown Non-Blood / Unknown 10/21/2024 10:52 AM CDT 10/21/2024 11:01 AM CDT us Loreto Salazar MD URINE Final Res ult [facility] [address] [address] * TROPONIN T (HS) ACUTE W/2HR REFLEX (10/21/2024 10:30 AM CDT) TROPONIN T HS 10 6-15 ng/L ng/L 10/21/2024 11:11 AM CDT [facility] Blood BLOOD SPECIMEN / Unknown Venipuncture / Unknown 10/21/2024 10:30 AM CDT 10/21/2024 10:31 AM CDT Narrative [facility] - 10/21/2024 11:11 AM CDT hs-cTnT (Elecsys Troponin T Gen 5) concentration (s) above the sex-specific 99th percentile (16 ng/L or greater for males or 11 ng/L or greater for females) are indicative of myocardial injury. If initial hs-cTnT <=100 ng/L at presentation, a 0h/2h ABSOLUTE (ng/L) delta change (rising or falling) of >=10 ng/L suggests a significant change, whereas a 0h/2h delta change <=3 ng/L suggests no significant change. If initial hs-cTnT >100 ng/L at presentation, a 0h/2h/ RELATIVE (percent, %) delta change of 20% is suggested to distinguish patients with acute vs. chronic myocardial injury. There are multiple etiologies that can cause hs-cTnT increases above the 99th percentile (myocardial injury) other than acute myocardial infarction. Clinical context and careful clinical evaluation are critical for diagnosis and risk-stratification. The diagnosis of acute myocardial infarction requires a rising and/or falling pattern in hs-cTnT concentrations with at least one value above the sex-specific 99th percentile PLUS at least one of the following clinical criteria: ischemic symptoms, new or presumed new significant ST-T wave changes or new LBBB, development of pathological Q waves, imaging evidence of new loss of viable myocardium or new regional wall motion abnormality, or identification of intracoronary atherothrombosis or an acute angiographic culprit on coronary angiography. In appropriate low-risk patients with a non-ischemic electrocardiogram without active chest pain with a symptom onset >3-hours without recurrence, a single initial hs-cTnT<6 ng/L identifies patient with a very low risk in emergency department patient population. us Loreto Salazar MD CHEMISTRY Final Res ult [facility] [address] [place] [phone] * (ABNORMAL) CBC WITH AUTO DIFFERENTIAL (10/21/2024 10:30 [facility] WHITE BLOOD COUNT 5.3 4.5 - 11.0 thou/cu mm 10/21/2024 10:36 AM [facility] RED BLOOD COUNT 4.05(L) 4.30 - 5.90 mil/cu mm 10/21/2024 10:36 AM [facility] HEMOGLOBIN 12.5(L) 13.5 - 17.5 g/dL 10/21/2024 10:36 AM [facility] HEMATOCRIT 36.5(L) 37.0 - 53.0 % 10/21/2024 10:36 AM [facility] MCV 90 80 - 100 fL 10/21/2024 10:36 AM [facility] MCH 30.9 26.0 - 34.0 pg 10/21/2024 10:36 AM [facility] MCHC 34.2 32.0 - 36.0 g/dL 10/21/2024 10:36 AM [facility] RDW 13.9 11.5 - 15.5 % 10/21/2024 10:36 AM [facility] PLATELET COUNT 218 140 - 440 thou/cu mm 10/21/2024 10:36 AM [facility] MPV 9.1 6.5 - 11.0 fL 10/21/2024 10:36 AM CDT [facility] % NEUT 69.7 % 10/21/2024 10:36 AM [facility] % LYMPH 13.8 % 10/21/2024 10:36 AM [facility] % MONO 12.9 % 10/21/2024 10:36 AM [facility] % EOS 3.0 % 10/21/2024 10:36 AM [facility] % BASO 0.6 % 10/21/2024 10:36 AM [facility] ABSOLUTE NEUTROPHILS 3.7 1.7 - 7.0 thou/cu mm 10/21/2024 10:36 AM [facility] ABSOLUTE LYMPHOCYTES 0.7(L) 0.9 - 2.9 thou/cu mm 10/21/2024 10:36 AM [facility] ABSOLUTE MONOCYTES 0.7 <0.9 thou/cu mm 10/21/2024 10:36 AM [facility] ABSOLUTE EOSINOPHILS 0.2 <0.5 thou/cu mm 10/21/2024 10:36 AM [facility] ABSOLUTE BASOPHILS 0.0 <0.3 thou/cu mm 10/21/2024 10:36 AM [facility] Blood BLOOD SPECIMEN / Unknown Venipuncture / Unknown 10/21/2024 10:30 AM CDT 10/21/2024 10:31 AM T us Loreto Salazar MD HEMATOLOGY Final Res ult Performing Organization Address City/State/[facility] Co de Phone Number [facility] [address] [address] * PROTIME-INR (10/21/2024 10:30 AM CDT) INR 1.0 <1.3 10/21/2024 10:43 AM [facility] PROTIME 11.9 10.6 - 12.4 sec 10/21/2024 10:43 AM [facility] Blood BLOOD SPECIMEN / Unknown Venipuncture / Unknown 10/21/2024 10:30 AM CDT 10/21/2024 10:31 AM CDT [facility] - 10/21/2024 10:43 AM CDT Therapeutic Range 2.0-3.0 for most anticoagulated patients 2.5-3.5 or 4.0 for high risk patients The INR is only used for patients on stable oral anticoagulant therapy. It makes no significant contribution to the diagnosis or treatment of patients whose Protime is prolonged for other reasons. INR results are increased when heparin levels exceed 1.0 U/mL, which corresponds to an aPTT >125 seconds if the patient is on UFH. us Loreto Salazar MD HEMATOLOGY Final Res ult [facility] [address] [address] * (ABNORMAL) PRO-BNP (10/21/2024 10:30 AM CDT) PRO-BNP 283(H) <125 pg/mL 10/21/2024 11:12 AM [facility] Blood BLOOD SPECIMEN / Unknown Venipuncture / Unknown 10/21/2024 10:30 AM CDT 10/21/2024 10:31 AM CDT [facility] - 10/21/2024 11:12 AM CDT The following cut-points have been suggested for the use of proBNP for the diagnostic evaluation of heart failure (HF) in patient with acute dyspnea. Patients with eGFR >= 60 Diagnosis (rule in CHF) <50 Years Old 450 pg/mL 50 - 75 Years Old 900 pg/mL >75 Years Old 1800 pg/mL Exclusion (rule out CHF) Age Independent 300 pg/mL A cutoff of 1200 pg/mL for patients with an eGFR <60 yields a diagnostic sensitivity of 89% and specificity of 72% for acute congestive heart failure. us Loreto Salazar MD SEND OUTS Final Res ult [facility] [address] [place] [phone] * (ABNORMAL) COMP METABOLIC PANEL (10/21/2024 10:30 AM CDT) SODIUM 137 136 - 145 mmol/L 10/21/2024 11:11 AM [facility] POTASSIUM 4.3 3.5 - 5.1 mmol/L 10/21/2024 11:11 AM [facility] CHLORIDE 99 98 - 107 mmol/L 10/21/2024 11:11 AM [facility] CO2,TOTAL 29 22 - 29 mmol/L 10/21/2024 11:11 AM [facility] ANION GAP 9 5 - 18 10/21/2024 11:11 AM [facility] GLUCOSE 104(H) 70 - 99 mg/dL 10/21/2024 11:11 AM [facility] CALCIUM 9.5 8.8 - 10.4 mg/dL 10/21/2024 11:11 AM [facility] Comment: Reference ranges for this test were updated on 05/17/2024 to reflect our healthy population more accurately. Reference range changes are not retroactively applied to results, but previous results using the same methodology can be interpreted in the context of the new reference range. BUN 14 8 - 23 mg/dL 10/21/2024 11:11 AM [facility] CREATININE 0.93 0.70 - 1.20 mg/dL 10/21/2024 11:11 AM [facility] BUN/CREAT RATIO 15 10 - 20 11:11 AM [facility] eGFR 88(L) >90 mL/min/1.7 3m2 10/21/2024 11:11 AM [facility] Comment:As of 2021, eG FR is calculated by the CKD-EPI creatinine equation without race adjustment. eGFR can be influenced by muscle mass, exercise, and diet. The reported eGFR is an estimation only and is only applicable if the renal function is stable. ALBUMIN 4.2 4.0 - 4.9 g/dL 10/21/2024 11:11 AM T [facility] PROTEIN,TOTAL 7.1 6.0 - 8.0 g/dL 10/21/2024 11:11 AM [facility] BILIRUBIN,TOTAL 0.3 0.0 - 1.2 mg/dL 10/21/2024 11:11 AM T [facility] ALK PHOSPHATASE 57 40 - 129 IU/L 10/21/2024 11:11 AM [facility] ALT (SGPT) 13 10 - 50 IU/L 10/21/2024 11:11 AM [facility] AST (SGOT) 22 10 - 50 IU/L 10/21/2024 11:11 AM [facility] Blood BLOOD SPECIMEN / Unknown Venipuncture / Unknown 10/21/2024 10:30 AM CDT 10/21/2024 10:31 AM CDT us Loreto Salazar MD CHEMISTRY Final Res ult Performing Organization Address [facility] Co de Phone Number [facility] [address] [phone] * EKG 12 LEAD (10/21/2024 10:19 AM CDT) Interpretation Normal sinus rhythm Normal ECG When compared with ECG of 31-May-2024 10:04, No significant change was found BEYOND NOW Ventricular Rate 66 BPM BEYOND NOW Atrial Rate 66 BPM BEYOND NOW P-R Interval 172 ms BEYOND NOW QRS Duration 92 ms BEYOND NOW QT 416 ms BEYOND NOW QTc 436 ms BEYOND NOW P Jerome 54 degrees BEYOND NOW R Jerome 31 degrees BEYOND NOW T Jerome 69 degrees BEYOND NOW 10/21/2024 10:1 9 AM CDT 10/21/2024 10:28 PM CDT us Loreto Salazar MD EKG ORD Final Res ult Performing Organization Address [facility] Co de Phone Number [facility] NOW [place], [place] * COLONOSCOPY (01/29/2023 10:21 AM CDT) 01/29/2023 10:2 1 AM CDT Narrative Transcriptions Ariana Coughlin MD - 01/29/2023 11:44 AM CDT Patient Name: Demetrius Baker Procedure Date: 01/29/2023 Gender: Male Date of : 1955 Admit Type: Ambulatory Procedure: Colonoscopy Proceduralist: Ariana Falk MD Referring MD: Ariana Falk MD Indications/Pre-Op Diagnosis: Screening for colorectal malignant neoplasm, positive cologuard test Medications: Monitored Anesthesia Care Procedure Description: The procedure, indications, potential complications, (bleeding, perforation, infection, adverse medication reaction, missed lesionsor polyps) and alternatives available were explained to the patient, who appeared to understand and indicated this. Opportunity for questionswas provided and informed consent obtained. The endoscope [id number] was passed through the anus andadvanced to the cecum, identified by appendiceal orifice and ileocecal valve.The colonoscopy was somewhat difficult due to significant looping. Successful completion of the procedure was aided by changing thepatient to a supine position and applying abdominal pressure. The patient tolerated the procedure well. The quality of the bowel preparationwas evaluated using the BBPS (Bynum Bowel Preparation Scale) with scores of: Right Colon = 3, Transverse Colon = 3 and Left Colon = 3 (entire mucosa seen well with no residual staining, small fragments of stoolor opaque liquid). The total BBPS score equals 9. Complications: No immediate complications. Estimated Blood Loss & Specimen: Estimated blood loss was minimal. Specimen collected: Yes and sent to Laboratory Findings: The perianal and digital rectal examinations were normal. A few diverticula were found in the sigmoid colon. Two sessile polyps were found in the cecum. The polyps were 3 to 5 mmin size. These polyps were removed with a cold snare. Resection and retrieval were complete. Three sessile polyps were found in the descending colon. The polypswere 3 to 6 mm in size. These polyps were removed with a cold snare. Resection and retrieval were complete. The exam was otherwise without abnormality on direct and retroflexion views. Impressions/Post-Op Diagnosis: - Diverticulosis in the sigmoid colon. - Two 3 to 5 mm polyps in the cecum, removed with a cold snare.Resected and retrieved. - Three 3 to 6 mm polyps in the descending colon, removed with a cold snare. Resected and retrieved. - The examination was otherwise normal on direct and retroflexionviews. Recommendation: - Await pathology results. - Dr. Falk's office will call you with results and follow up instructions Moderate Sedation: see anesthesia report Ariana Falk MD 01/29/2023 11:44:39 AM This report has been signed electronically. Note Initiated On: 01/29/2023 10:21 AM Ariana Wen MD PROCEDURE ORD Fin al Result from Last 3 Months or Most Recently Relevant to Health Maintenance Insurance MEDICARE PART B HB ONLY MEDICARE PART A HB ONLY [facility] MEDIC[facility] PB ONLY [facility] MEDIC[facility] PPS Advance Directives * Full Code (Latest Code Status on File) Date Activated Date Inactivated Comments 06/14/2024 10:04 AM 10/21/2024 9:52 AM * Full Code Date Activated Date Inactivated Comments 05/31/2024 2:23 PM 06/04/2024 4:49 PM Question Answer Comments Code Status Discussion: Unable to Assess Preferences, Provider to review later * Full Code Date Activated Date Inactivated Comments 01/29/2023 8:18 AM 01/29/2023 3:44 PM Question Answer Comments Code Status Discussion: Unable to Assess Preferences, Provider to review later * Full Code Date Activated Date Inactivated Comments 01/29/2023 8:18 AM 01/29/2023 8:18 AM Question Answer Comments Code Status Discussion: Not Discussed * Full Code Date Activated Date Inactivated Comments 06/14/2020 12:24 PM 06/14/2020 6:15 PM Question Answer Comments Code Status Discussion: Not Discussed Care Teams Human Resources Benefits Assistant Relationship Specialty Start Date End Date Glen Troy MD [address] [place] [id number] PCP - General Family Practice 06/07/24 Iglesia Garber MD Surgery - Otolaryngology 01/25/18
--- NOTE | 2025-01-10 11:22 | W.PM.SLEEP ---
Sleep Study Details Details Interpreting Provider: Shirlene Date of Sleep Study: 01/03/25 Sleep Study Details: STUDY TYPE:? Hospital-based, attended, CPAP titration ? BMI:? 29 ORDERING PROVIDER:? Woodrow INDICATION:? Concern about sleep apnea ? SLEEP SUMMARY:? 435 minutes total sleep time RESPIRATORY SUMMARY:? Mean oxygen awake 90 asleep 90 minimum 74, 35.2 minutes oxygen between 80 and 88% AHI 96.3. REM AHI 240. Diagnostic portion of the study was done in the supine position CPAP titration was performed to a pressure of 13. At a pressure of 12 there was nonsupine REM sleep and AHI was decreased to 5.4. At a pressure of 13 the AHI was decreased to 4.8 per CMS guideline and there were 139 minutes of supine REM sleep. PERIODIC LIMB MOVEMENTS OF SLEEP:? Post treatment index 14.7, index with arousal 0.7. There were none pre treatment CARDIAC:? Awake 69, asleep 60. No arrhythmias noted IMPRESSION:? Very severe obstructive sleep apnea RECOMMENDATION: Very severe obstructive sleep apnea with successful titration at pressures of 12 in the nonsupine position and 13 in the supine position. Recommend initiating CPAP at auto set pressure of 12 to 17. Patient should be advised to sleep in the nonsupine position.
== END 2025-01-03 19:50 | disposition home or self-care (01) ==
LOC: SLEEP 19:52
PROVIDERS: PCP Family Medicine; Visit Provider Family Medicine
DX: G47.33 Obstructive sleep apnea (adult) (pediatric) (principal)
CPT/HCPCS: 95811